=== PATIENT | female | born 1960 | race Caucasian/White ===

== ENCOUNTER 2023-05-14 12:27 | Emergency (ER) | payer MEDICAID, SELFPAY ==
[2023-05-14 12:30] VITALS: BP 118/86; PULSE 99; RESP 14; TEMP 36.7; O2SAT 98; BMI 28.8
--- NOTE | 2023-05-14 13:07 | EKG12_ITS ---
Test Reason : cp Blood Pressure : / mmHG Vent. Rate : 092 BPM Atrial Rate : 092 BPM P-R Int : 142 ms QRS Dur : 078 ms QT Int : 356 ms P-R-T Axes : 076 086 063 degrees QTc Int : 440 ms Normal sinus rhythm Biatrial enlargement Nonspecific ST abnormality Abnormal ECG Confirmed by DEMETRIA MEEHAN, KEVIN ([id number]), editorial director ILEANA FARFAN ([id number]) on 05/15/2023 10:06:41 AM Referred By: Confirmed By:KEVIN AUGUSTIN MD
[2023-05-14 13:18] LABS: Absolute Lymphocyte Count 1.06 X10^3/uL (0.83-4.51); Absolute Neutrophil Count 6.4 X10^3/uL (2.0-7.7); Basophil# 0.02 X10^3/uL; Basophil% 0.3 % (0-1); Eosinophil# 0.02 X10^3/uL; Eosinophils% 0.3 % (0-5); Hematocrit 45.1 % (37-47); Hemoglobin 15.5 g/dL (12.0-15.0); Lymphocyte # 1.06 X10^3/ul (0.83-4.51); Lymphocyte % 13.5 % (19-41); Mean Corp Hgb Conc 34.4 g/dL (32-36); Mean Corpuscular Hgb 32.5 pg (27.0-32.0); Mean Corpuscular Volume 94.5 fL (81-99); Mean Platelet Vol. 11.2 fl (6.2-12.0); Monocyte# 0.42 X10^3/uL; Monocyte% 5.3 % (0-10); NRBC Flagged by Analyzer 0 % (0-5); Neutrophil # 6.35 X10^3/uL (2.7-7.7); Neutrophil % 80.5 % (47-70); Platelet Count 107 K/mm3 (150-450); RBC Distribution Width SD 51.8 fl (35.1-43.9); Red Blood Count 4.77 M/mm3 (4.2-5.4); White Blood Count 7.9 K/mm3 (4.4-11.0)
[2023-05-14] MEDS: 0.9% Normal Saline 1,000 ML 1000 ML IV (13:20)
--- NOTE | 2023-05-14 13:23 | RAD_ITS ---
STUDY: X-RAY CHEST REASON FOR EXAM: Female, 63 years old. Chest pain TECHNIQUE: PA and lateral views of the chest. COMPARISON: None. FINDINGS: EKG electrodes are seen. The lungs are clear and expanded. Scattered calcified granulomas. There is no demonstrated pleural abnormality. Normal size heart. Normal mediastinum and fernando. Normal visualized pulmonary arteries. There is atherosclerotic calcification of the aortic arch with tortuosity. There are mild degenerative changes of the visualized thoracic spine. Normal visualized ribs, clavicles, and shoulders. There is no demonstrated abnormality of the visualized soft tissue structures of the upper abdomen. RAD/Chest PA and Lateral IMPRESSION: No acute abnormality is seen. Electronically Signed: Darell Dave MD at 13:37 EDT ,
[2023-05-14 13:28] VITALS: PULSE 97; RESP 15; O2SAT 98
[2023-05-14 13:38] LABS: Anion Gap 12 (5-15); BUN 24 mg/dL (7-18); BUN/Creat Ratio 17.1 RATIO (10-20); Calcium,Total 8.8 mg/dL (8.5-10.1); Chloride 103 mmol/L (98-107); EST Glomerular Filtration Rate 40 mL/min (>60); Est Glom Filt Rate - Afr Amer 49 mL/min (>60); Estimated Creatinine Clearance 36.05 ml/min; Glucose 120 mg/dL (74-106); Sodium Level 136 mmol/L (136-145); Troponin-I HS < 3 pg/mL (3.0-54.0)
[2023-05-14 13:49] LABS: BNP,B-Type NATRIURETIC PEPTIDE 75.1 pg/mL (0-100)
--- NOTE | 2023-05-14 13:54 | ED.VIS.CHEST ---
HPI <MANNY Tavares - Last Filed: 05/14/23 20:24> History of Present Illness Chief Complaint: Chest Pain Narrative Narrative: Patient presenting today with her daughter due to concerns for chest pressure that she has on exertion over the past few months. She reports that she had a heart attack in July and has a history of CHF but never followed up with physical therapy or cardiology and she is very inconsistent in following up with her PCP. Her daughter reports that she is very stubborn and she did not realize how sick her mom was up until recently. She reports that she has been fatigued, weak, and is acting more confused than usual. However, she was told that the confusion could be related to her alcohol abuse. She was recently in rehab for alcohol use a few months ago but has had a few relapses since. She reports she has not had a drink in 3 days. She denies any fever, chills, shortness of breath, history of blood clots, recent surgery/procedures, and recent immobilization. PFSH <MANNY Tavares - Last Filed: 05/14/23 20:24> [facility] Medical History CHF (congestive heart failure) Recovering alcoholic Home Medications aspirin 81 mg tablet,delayed release (Adult Low Dose Aspirin) 81 mg PO DAILY 05/14/23 [History Last Taken Unknown] dapagliflozin propanediol 10 mg tablet (Farxiga) 10 mg PO DAILY 05/14/23 [History Last Taken Unknown] metoprolol succinate 25 mg tablet,extended release 24 hr 25 mg PO DAILY 05/14/23 [History Last Taken Unknown] quetiapine 50 mg tablet 50 mg PO DAILY 05/14/23 [History Last Taken Unknown] sacubitril 24 mg-valsartan 26 mg tablet (Entresto) 1 tab PO BID 05/14/23 [History Last Taken Unknown] sertraline 100 mg tablet 100 mg PO DAILY 05/14/23 [History Last Taken Unknown] spironolactone 25 mg tablet (Aldactone) 12.5 mg PO DAILY 05/14/23 [History Last Taken Unknown] Allergy/AdvReac Type Severity Reaction Status Date / Time No Known Allergies Allergy Verified 05/14/23 12:30 Social History Smoking Status: Current every day smoker tobacco type: cigarettes ROS <MANNY Tavares - Last Filed: 05/14/23 20:24> ROS ED Constitutional Constitutional ED: Denies chills or fever(s) Eyes Eyes: Denies change in vision Cardiovascular Cardiovascular: Reports chest pain; Denies palpitations Respiratory/Chest Respiratory/Chest: Denies cough or dyspnea Gastrointestinal Gastrointestinal: Denies abdominal pain, nausea or vomiting Genitourinary Genitourinary ED: Denies dysuria, hematuria or urinary urgency Musculoskeletal Musculoskeletal: Denies arthralgias or myalgias Integumentary Denies rash Neurologic Neurologic: Reports weakness EXAM <MANNY Tavares - Last Filed: 05/14/23 20:24> Physical Exam Const Vital Signs: 05/14/23 12:30 05/14/23 12:28 05/14/23 13:28 Temperature 98.1 F Temperature Source Temporal Pulse Rate 99 97 Respiratory Rate 14 15 Respiratory Effort Normal Non-Labored Blood Pressure 118/86 H Blood Pressure Mean 96 Pulse Ox 98 98 Oxygen Delivery Method Room Air Room Air 05/14/23 14:28 05/14/23 15:00 Temperature Temperature Source Pulse Rate 96 90 Respiratory Rate 17 16 Respiratory Effort Blood Pressure Blood Pressure Mean Pulse Ox 98 98 Oxygen Delivery Method Room Air Room Air Positive well nourished, well developed and no apparent distress General Appearance ED: well developed HEENT Reports normocephalic and head/scalp atraumatic Mouth ED: Yes moist mucous membranes normal Eyes PERRL and EOMs intact bilaterally Neck full ROM and supple Chest Wall inspection of chest normal Resp normal respiratory effort and clear to auscultation bilaterally Cardio regular rate and regular rhythm GI soft to palpation, non-tender, non-distended and no masses Back/Spine normal ROM and normal to inspection Extremity normal to inspection and full ROM Neuro oriented x3, CN's II-XII intact bilaterally, moves all extremities, no focal motor deficits and no sensory deficits noted Sensorium / Orientation: awake and alert Psych mental status grossly normal and thought process normal Skin no rashes or lesions noted and no wounds <Dr. Hunter Rojas DO - Last Filed: 05/14/23 16:16> Physical Exam Const Vital Signs: 05/14/23 12:30 05/14/23 12:28 05/14/23 13:28 Temperature 98.1 F Temperature Source Temporal Pulse Rate 99 97 Respiratory Rate 14 15 Respiratory Effort Normal Non-Labored Blood Pressure 118/86 H Blood Pressure Mean 96 Pulse Ox 98 98 Oxygen Delivery Method Room Air Room Air 05/14/23 14:28 05/14/23 15:00 Temperature Temperature Source Pulse Rate 96 90 Respiratory Rate 17 16 Respiratory Effort Blood Pressure Blood Pressure Mean Pulse Ox 98 98 Oxygen Delivery Method Room Air Room Air <MANNY aTvares - Last Filed: 05/14/23 20:24> Heart Score Score: 4 <Dr. Hunter Rojas DO - Last Filed: 05/14/23 16:16> Heart Score History: Moderately Suspicious ECG: Normal Age: >/= 65 years Risk Factors: 1 or 2 Risk Factors Troponin: </= Normal Limit Score: 4 MDM <MANNY Tavares - Last Filed: 05/14/23 20:24> MDM MDM Narrative Medical decision making narrative: Patient presenting due to symptoms of chest pressure on exertion that she has had chronically. Daughter reports that she has been acting more confused but was told that that can be normal given her history of alcohol abuse. Patient is also felt fatigued and weak. 3 months ago she was in a rehab center for alcohol abuse and has relapsed a few times since being home. She has a history of CHF and had an OR in July and never appropriately followed up with cardiology and does not follow-up with her PCP regularly. Her daughter brought her in today as she did not realize how unhealthy her mom was. She is well-appearing and in no distress. Vitals are unremarkable. She reports mild left-sided chest pressure on exertion today, labs will be obtained to rule out ACS, anemia, electrolyte abnormality, LUIS EDUARDO, UTI. BMP will be obtained given her history of CHF. She does not have any peripheral edema. EKG is normal sinus. Labs overall are unremarkable. UA was sent for culture. Given her history of OR she does have an elevated heart score of 4. I did have a discussion with patient regarding admission versus outpatient follow-up for cardiac testing and patient would like to follow-up outpatient. She does not want to be admitted to the hospital. She has been given strict return instructions will be discharged in stable condition. She is comfortable with plan. Lab Data Attestation: I reviewed the patient's lab results. Labs: Laboratory Results - last 24 hr 05/14/23 05/14/23 05/14/23 12:45 13:55 15:20 WBC 7.9 RBC 4.77 Hgb 15.5 H Hct 45.1 MCV 94.5 MCH 32.5 H MCHC 34.4 RDW Std Deviation 51.8 H RDW Coeff of Mark 15.0 H Plt Count 107 L MPV 11.2 Immature Gran % (Auto) 0.100 Neut % (Auto) 80.5 H Lymph % (Auto) 13.5 L [place] % (Auto) 5.3 Eos % (Auto) 0.3 Baso % (Auto) 0.3 Absolute Neuts (auto) 6.4 Absolute Lymphs (auto) 1.06 Nucleated RBC % 0 Sodium 136 Potassium 4.0 Chloride 103 Carbon Dioxide 21.0 Anion Gap 12 BUN 24 H Creatinine 1.40 H Estim Creat Clear Calc 36.05 Est GFR (MDRD) Af Amer 49 L Est GFR (MDRD) Non-Af 40 L BUN/Creatinine Ratio 17.1 Glucose 120 H Calcium 8.8 Troponin I High Sens < 3 L 4 B-Natriuretic Peptide 75.1 Urine Color Yellow Urine Clarity Sl. Cloudy Urine pH 5.0 Ur Specific [place] 1.025 Urine Protein 30 H Urine Glucose (UA) 250 H Urine Ketones 5 H Urine Occult Blood 10 H Urine Nitrite Negative Urine Bilirubin Negative Urine Urobilinogen Normal Ur Leukocyte Esterase 100 H Urine RBC 0-5 SEEN Urine WBC 10-25 SEEN Ur Squamous Epith Cells 0-5 SEEN Urine Bacteria 1+ Hyaline Casts 0-5 SEEN Urine Mucus 0 SEEN Radiography Diagnostic Testing: Clinical Impression(s) from Imaging Studies Chest X-Ray 05/14/23 13:23 IMPRESSION: No acute abnormality is seen. Electronically Signed: Darell Dave MD at 13:37 EDT , EKG Initial EKG: Comments: 92 bpm, normal sinus rhythm, no ST elevation, reviewed and interpreted by attending ED physician <Dr. Hunter Rojas, DO - Last Filed: 05/14/23 16:16> [facility] Lab Data Labs: Laboratory Results - last 24 hr 05/14/23 05/14/23 05/14/23 12:45 13:55 15:20 WBC 7.9 RBC 4.77 Hgb 15.5 H Hct 45.1 MCV 94.5 MCH 32.5 H MCHC 34.4 RDW Std Deviation 51.8 H RDW Coeff of Mark 15.0 H Plt Count 107 L MPV 11.2 Immature Gran % (Auto) 0.100 Neut % (Auto) 80.5 H Lymph % (Auto) 13.5 L [place] % (Auto) 5.3 Eos % (Auto) 0.3 Baso % (Auto) 0.3 Absolute Neuts (auto) 6.4 Absolute Lymphs (auto) 1.06 Nucleated RBC % 0 Sodium 136 Potassium 4.0 Chloride 103 Carbon Dioxide 21.0 Anion Gap 12 BUN 24 H Creatinine 1.40 H Estim Creat Clear Calc 36.05 Est GFR (MDRD) Af Amer 49 L Est GFR (MDRD) Non-Af 40 L BUN/Creatinine Ratio 17.1 Glucose 120 H Calcium 8.8 Troponin I High Sens < 3 L 4 B-Natriuretic Peptide 75.1 Urine Color Yellow Urine Clarity Sl. Cloudy Urine pH 5.0 Ur Specific [place] 1.025 Urine Protein 30 H Urine Glucose (UA) 250 H Urine Ketones 5 H Urine Occult Blood 10 H Urine Nitrite Negative Urine Bilirubin Negative Urine Urobilinogen Normal Ur Leukocyte Esterase 100 H Urine RBC 0-5 SEEN Urine WBC 10-25 SEEN Ur Squamous Epith Cells 0-5 SEEN Urine Bacteria 1+ Hyaline Casts 0-5 SEEN Urine Mucus 0 SEEN Radiography Diagnostic Testing: Clinical Impression(s) from Imaging Studies Chest X-Ray 05/14/23 13:23 IMPRESSION: No acute abnormality is seen. Electronically Signed: Darell Dave MD at 13:37 EDT , Treatment and Re-Evaluation :: ED attending note: I evaluated the patient in conjunction with the YEMI. I agree with his/her statements and above findings. I have personally performed a face to face assessment of the patient and have reviewed the YEMI Note. I performed a substantive portion of the visit including all aspects of the following. I personally saw the patient performed chart review, physical exam, reviewed labs, imaging (if obtained), and formulated a treatment and management plan. Brief history: 63-year-old female presents with pressure-like chest pain. The patient denies recent surgery in the last 4 weeks or immobilization in the last 3 days, denies previous diagnosis of DVT or PE, hemoptysis, unilateral leg swelling or malignancy with treatment the last 6 months. No estrogen use noted. Patient denies sudden onset of pain, no tearing sensation, no migratory symptoms, no new numbness, weakness or loss of sensation. Patient denies family history or personal history of Marfan syndrome or Miles-Danlos Exam: Nursing triage notes reviewed, Vital signs reviewed Constitutional: please see mdm HENT: MMM Eyes: Pupils equal round and reactive to light, Extraocular muscles intact Neck: No stridor, no JVD, full neck ROM Lungs: Clear to auscultation, No wheezing or rales. No increased work of breathing, no conversational dyspnea, no accessory muscle use, no nasal flaring. No respiratory distress noted Heart: Regular rate and rhythm, No murmurs, No rubs and No gallops, 2+ distal pulses (radial, femoral, posterior tibial) in all extremities Abdomen: Soft, there is no tenderness, rigidity, rebound or guarding, no obvious peritoneal signs, no palpable pulsatile abdominal masses, no auscultated abdominal bruit : No CVAT Extremities: No edema Neuro: No focal neurological deficits, cranial nerves II through XII intact, 5/5 strength in all extremities. Intact sensation to light touch in all extremities, 2+ reflexes bilateral patella dens. Normal gait. No ataxia. Skin: No rash or lesions noted MDM/plan: Chief Complaint: Chest pain External records reviewed: No recent cardiac catheterizations, stress test or echocardiograms Factors affecting care: Alcoholism Social determinants of health: Alcoholism, everyday smoker History obtained from others: The patient's daughter MDM narrative: Patient was hemodynamically stable, afebrile, nontoxic-appearing. I considered the following differential diagnosis: PE less likely given low risk Wells score. Aortic dissection is thought to be less likely given no sudden ripping or tearing pain, migratory pain, palpable pulse inequalities, no focal neurologic deficits concurrent with chest pain. Chance of dissection less than 10/1999. Pericarditis less likely given no pathognomonic EKG changes (no diffuse ST elevations, MD depressions). GI etiology (i.e. Boerhaave syndrome) less likely given no chest or neck crepitus, no vomiting or forced retching. I obtained labs images to further elucidate the etiology the patient complaint. BNP within normal limits suggestive of no increased myocyte stretch Troponin is negative, no evidence of myocardial ischemia CBC without leukocytosis, severe anemia, no thrombocytopenia. BMP without evidence of significant electrolyte abnormalities, no anion gap, no acute kidney injury. I have personally reviewed the patient's chest x-ray. Chest x-ray is unremarkable for pulmonary edema, pneumothorax, pneumonia or focal cardiopulmonary abnormality. Urinalysis shows no evidence of urinary inflammation suggestive of UTI heart score is 4 which is high risk (12-6 5% 30-day MACE). Will offer admission and determine final disposition based on shared decision making. Shared decision making: I will have a discussion with the patient and or visitors regarding risk/benefits of further testing or admission. They will be made aware of of the risk/benefits inherent in this decision they will be given the opportunity to voice understanding. Consults: Internal Medicine Discharge Plan Triage Chief Complaint: Chest Pain Other Complaint: Palpitations ED Midlevel Provider: Tennille Red ED Provider: Hunter Rojas Dx/Rx/DC Orders Clinical Impression: Chest pressure, History of alcohol abuse Instructions: ED Chest Pain, Uncertain Cause, ED Cystitis Female Adult Prescriptions: No Action Farxiga 10 mg tablet 10 mg PO DAILY spironolactone [Aldactone] 25 mg tablet 12.5 mg PO DAILY aspirin [Adult Low Dose Aspirin] 81 mg tablet,delayed release (DR/EC) 81 mg PO DAILY sertraline 100 mg tablet 100 mg PO DAILY metoprolol succinate 25 mg tablet extended release 24 hr 25 mg PO DAILY Entresto 24-26 mg tablet 1 tab PO BID quetiapine 50 mg tablet 50 mg PO DAILY Primary Care Provider: Talya Shafer CNP Referrals: Talya Shafer CNP [Other] - 3-5 Days Samuel Schwartz MD [Med Staff - Active Staff] - 5-7 Days Activity Restrictions/Additional Instructions: Please follow-up with your PCP and with cardiology. Return for any worsening of your symptoms. Disposition Disposition: Home, Self Care Discharge Date/Time: 05/14/23 16:18
[2023-05-14 13:58] LABS: Mucous, Urine 0 SEEN /hpf (<or=2+)
[2023-05-14 14:01] LABS: Color, Urine Yellow (Yellow); Glucose, Dipstick 250 mg/dl (Normal); Ketone-Dipstick 5 mg/dl (Negative); Leukocyte Esterase-Dipstick 100 /ul (Negative); Nitrite-Dipstick Negative (Negative); Occult Blood-Urine 10 /ul (Negative); Protein-Dipstick 30 mg/dl (Negative); Specific Gravity, Urine 1.025 (1.002-1.030); Urine Bilirubin Dipstick Negative (Negative); Urine Clarity Sl. Cloudy (Clear); Urine Urobilinogen Normal (Normal)
[2023-05-14 14:09] LABS: Bacteria 1+ /hpf (None Seen); Hyaline Cast 0-5 SEEN /lpf (0-5); Red Blood Cells-Urine 0-5 SEEN /hpf (0-5); Squamous Epithelial Cells - UA 0-5 SEEN /hpf (5-10); White Blood Cells 10-25 SEEN /hpf (0-5)
[2023-05-14 14:28] VITALS: PULSE 96; RESP 17; O2SAT 98
[2023-05-14 15:00] VITALS: PULSE 90; RESP 16; O2SAT 98
[2023-05-14 15:45] LABS: Troponin-I HS 4 pg/mL (3.0-54.0)
--- NOTE | 2023-05-14 22:18 | CM.ED ---
Social Work Pt's daughter requested to speak to SW regarding advance directives. SW brought information to patient. Pt's daughter was on the phone at that time for a JFS appt. and declined to speak at that time. SW left AD information booklet and scheduling information. Alice Connelly MEDICAL CODER, PATTERN MARKER
== END 2023-05-14 16:18 | disposition home or self-care (01) ==
PROVIDERS: Physician Assistant; Emergency Provider Emergency Medicine; Visit Provider Emergency Medicine
DX: R07.89 Other chest pain (principal); I50.9 Heart failure, unspecified; F17.210 Nicotine dependence, cigarettes, uncomplicated; R41.0 Disorientation, unspecified; F10.10 Alcohol abuse, uncomplicated; R00.2 Palpitations; Z79.82 Long term (current) use of aspirin
CPT/HCPCS: 71046; 80048; 81001; 83880; 84484; 85025; 93005; 96360; 96361; 99284; J7030; A4216